=== PATIENT | female | born 1960 | race Caucasian/White ===

== ENCOUNTER 2017-02-25 19:43 | Emergency (ER) | payer OTHER ==
[~2017-02-25] VITALS: Ht 162.6 cm; Wt 91.4 kg
[~2017-02-25 19:43] MED LIST: ADVAIR HFA120 INHAL1 IH; CLEOCIN150 MG PO; CLEOCIN300 MG PO; CLINDAMYCIN HC300 MG PO; CRESTOR20 MG PO; FUROSEMIDE40 MG PO; LASIX40 MG PO; LISINOPRIL2.5 MG PO; NAPROSYN500 MG PO; PERCOCET 5/31 TABLET PO; PHENOBARBITAL64.8 MG PO; PREDNISONE10 MG PO; SYMBICORT60 INHALAT IH; TEGRETOL200 MG PO; TRAMADOL HCL50 MG PO; VALIUM5 MG PO; VENTOLIN HFA18 GM IH; ZOFRAN ODT4 MG PO
[2017-02-25] MEDS ORDERED: WESTCORT 0.2% C15 GM TP (20:10)
[2017-02-25 20:33] VITALS: BP 148/85
== END 2017-02-25 20:35 | disposition home or self-care (01) ==
LOC: EME 19:43
DX: T49.4X1A Poisoning by keratolytics, keratoplastics, and other hair treatment drugs and preparations, accidental (unintentional), initial encounter (principal); T20.56XA Corrosion of first degree of forehead and cheek, initial encounter; Z87.891 Personal history of nicotine dependence
CPT/HCPCS: 99281; 99283

== ENCOUNTER 2017-05-16 16:15 | Emergency (ER) | payer OTHER ==
[~2017-05-16] VITALS: Ht 157.5 cm; Wt 92.7 kg
[~2017-05-16 16:15] MED LIST changes: +WESTCORT 0.2% C15 GM TP
[2017-05-16] MEDS ORDERED: NAPROXEN500 MG PO (18:02)
[2017-05-16 18:27] VITALS: BP 137/85
== END 2017-05-16 18:27 | disposition home or self-care (01) ==
LOC: EME 16:15
DX: M25.561 Pain in right knee (principal); M25.571 Pain in right ankle and joints of right foot; W10.1XXA Fall (on)(from) sidewalk curb, initial encounter; J44.9 Chronic obstructive pulmonary disease, unspecified; E78.5 Hyperlipidemia, unspecified; Z87.891 Personal history of nicotine dependence
CPT/HCPCS: 73564; 73610; 99281; 99283